=== PATIENT | female | born 1995 | race Two or more races ===

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

== ENCOUNTER 2017-02-20 21:33 | Emergency (ER) | payer OTHER ==
[~2017-02-20] VITALS: Ht 162.6 cm; Wt 62.6 kg
== END 2017-02-21 00:08 | disposition home or self-care (01) ==
LOC: SED 21:33
DX: L60.0 Ingrowing nail (principal)
CPT/HCPCS: 99283